=== PATIENT | female | born 1930 | race Caucasian/White ===

== ENCOUNTER → 2016-08-04 | Outpatient (REF) ==
[~2016-08-04] MED LIST: ALDACTONE 25MG25 M1 PO; ALDACTONE50 MG PO; AMARYL 2MG T2 MG/TAB PO; AMARYL4 MG PO; AMIODARONE200 MG PO; ASPIRIN E.C. 8181 MG PO; CARDIZEM CD 12120 MG PO; CARDIZEM CD 18180 MG PO; CARTIA XT180 MG PO; CARTIA XT240 MG PO; COLACE 100100 MG/CAP PO; CORDARONE200 MG/TAB PO; COUMADIN 1MG1 MG/TAB PO; COUMADIN 5MG5 MG/TAB PO; DULCOLAX S10 MG/SUPP RC; FERROUS SU325 MG/TAB PO; GAS RELIEF80 MG PO; HCTZ 25MG TAB25 MG PO; HEPARIN 50500 U/5 ML IV; IPRATROPIUM BROM3 M1 IH; KLONOPIN 0.5MG0.5 MG PO; KLONOPIN WAFE0.25 MG PO; KLONOPIN WAFER0.5 MG PO; KLOR-CON M2020 MEQ PO; LANOXIN 0.25M0.25 MG PO; LASIX 20MG TABL20 MG PO; LASIX40 MG PO; LEVAQUIN 750MG750 M1 PO; MAALOX MAX + ANT1 ML PO; METAMUCIL3.4 GM/DOS PO; MILK OF MA400 MG/52 PO; MIRALAX119G PO; NATURAL E400 IU PO; NORCO 325 MG-101 TAB PO; NOVLOG SQ; NOVOLOG 100U100 U/M1; NS INT FLUSH 1010 ML IV; OSTEO-BI-FLEX 21 TAB PO; PACERONE100 MG PO; PEPCID AC20 MG PO; PERCOCET 325 MG1 TA2 PO; PHARMASSURE MA500 MG PO; POTASSIUM CL 220 MEQ PO; PRILOSEC 20MG20 MG PO; PROTONIX 40MG T40 MG PO; SENNA8.6 MG PO; SENNO8.6 MG PO; SLOW-MAG535 MG PO; TYLENOL 325MG325 MG PO; TYLENOL 500MG500 MG PO; TYLENOL SU650 MG/SUP RC; VITAMIN D 50,1.25 MG PO; VITAMINC1000TA; XOPENEX 0.0.63 MG/3 IH; ZOCOR 80MG80 MG PO; [UNRECOGNIZED DRUG - OTHER]
== END ==
LOC: ZLAB.WCH 15:16
DX: Z01.89 Encounter for other specified special examinations (principal)

== ENCOUNTER → 2016-10-14 | Outpatient (REF) | LOC: ZLAB.WCH 18:10 | DX: Z01.89 Encounter for other specified special examinations (principal) ==

== ENCOUNTER → 2018-03-02 | Outpatient (REF) | LOC: ZLAB.WCH 08:31 | DX: Z01.89 Encounter for other specified special examinations (principal) ==

== ENCOUNTER 2019-08-26 09:49 | Inpatient (IN) | payer MEDICARE ==
[~2019-08-26] VITALS: Ht 160 cm; Wt 80.6 kg
[~2019-08-26 09:49] MED LIST changes: +GAVISCON 80 MG-1 CT1 PO; -[UNRECOGNIZED DRUG - OTHER]
[2019-08-26] MEDS ORDERED: ASPIRIN E.C. 8181 MG PO (12:30)
--- NOTE | 2019-08-26 12:30 | NUR ---
Patient here by EMS. Notified daughter/DPOA of patient status. Notified hospitalist of patient arrival. Patient oriented to room, is alert and oriented to self. Bruising noted over left eye. LUE in sling with splint in place, hand appears swollen with brusing over dorsal aspect of hand. Pulses intact, sensation intact per patient. Assessment and five page complete. Redness noted to groin, bed bath completed. Carter to dependent drainage with clear devin urine in bag. Patient states pain 2/10 to LUE. Denies further needs at this time.
[2019-08-26] MEDS ORDERED: CARTIA XT120 MG PO (12:33)
[2019-08-26] MEDS ORDERED: LIPITOR20 MG PO (12:36)
[2019-08-26] MEDS ORDERED: MAG-OX 400400 MG/TAB PO (12:38)
[2019-08-26] MEDS ORDERED: SYNTHROID0.05 MG/TA PO (12:40)
[2019-08-26 13:03] VITALS: BP 144/48; PULSE 72; TEMP 98.2
[2019-08-26 14:59] LABS: BASO % 0.3 % (0.0-2.0); EOS # 0.1 (0.0-0.7); EOS % 0.8 % (0-4.0); GRAN # 10.8 (1.4-6.5); HEMOGLOBIN 11.9 g/dl (12.5-16.0); LYMPH # 1.8 (1.2-3.4); LYMPH % 12.8 % (20.0-51.0); MEAN CELL VOLUME 100 fl (80.0-100.0); MEAN CORPUSCULAR HEMOGLOBIN 32 pg (27.0-31.0); MEAN CORPUSCULAR HGB CONC 33 g/dl (33.0-37.0); MEAN PLATELET VOLUME 10.8 fl (7.4-10.4); MONO # 1.1 (0.1-0.6); MONO % 7.6 % (1.7-9.3); PLATELET COUNT 296 K/mm3 (130-400); RED BLOOD COUNT 3.67 M/mm3 (4.10-5.30); REDCELL DISTRIBUTION WIDTH-CV 12.9 % (11.5-14.5)
[2019-08-26 15:00] LABS: HEMATOCRIT 36.6 % (37.0-47.0)
[2019-08-26 15:05] LABS: INR 1.3 (0.8-3.0); PROTHROMBIN TIME 15.2 SECONDS (9.7-12.8)
[2019-08-26 15:08] VITALS: BP 153/46; PULSE 74; TEMP 98.2
[2019-08-26 15:19] LABS: ALBUMIN 3.5 gm/dL (3.5-5.0); BILIRUBIN,TOTAL 0.9 mg/dL (0.0-1.0); CREATININE, serum 0.56 (0.52-1.25); TOTAL PROTEIN 6.5 gm/dL (6.4-8.2)
--- NOTE | 2019-08-26 15:31 | NUR ---
LEONARDA contacted the patient's daughter, Rose Marie Clay (ph#[phone]), to discuss discharge plan. The patient lives in [place] with Rose Marie, her son-in-law, and granddaughter. They live in a bi level home. Rose Marie states that the patient lives downstairs. Rose Marie reports that the patient needs some assistance with bathing and has a wheelchair and cane. Rose Marie states that she provides assistance to the patient, when the patient allows it and that the patient primarily uses a wheelchair. She states that the patient will use her cane when she wants to stand up. The patient's PCP is Dr. Jaya Hinkle and she receives her medications at [facility]. Rose Marie reports no difficulties obtaining her meds. The patient does not have advanced directives in EMR, but Rose Marie reports that the patient does not have them completed and at home. She states that she is the patient's DPOA-HC. The H&P reports that the patient has not followed up with her PCP in a year. LEONARDA discussed this with the patient's daughter. The patient's daughter reports that the patient has not been out of their home in a year. She states that the patient does not want to leave the home or go to her appointments. The patient's daughter reports that the plan is for the patient to return back home with them and that she plans to stay downstairs with the patient. LEONARDA discussed home health services. Rose Marie reports that the patient has had home health in the past and that she would be interested in home health again. LEONARDA reviewed Medicare.gov's list of home health agencies that serve [place]. The patient's daughter chose [facility]. LEONARDA contacted and faxed a referral to Gisselle at [facility]. LEONARDA awaiting their screen. Gisselle reports that she would need to get approval from the patient's insurance. LEONARDA to continue to follow.
--- NOTE | 2019-08-26 18:55 | NUR ---
Patient has done well throughout the day. Carter maintained to dependent drainage with clear yellow urine in bag. LUE maintained in sling and elevated. SCDs to BLE. Contacted daughter KARL Trotter for consent for procedure tomorrow. Denies pain throughout the day. Denies further needs at this time. Reported off to shift superintendent caustic cresylate.
--- NOTE | 2019-08-26 19:27 | NUR ---
Pt doing ok. Alert and oriented to self, some confusion at times. Pt here with L radial fx. VSS. Heart and lung sounds normal. Bowel sounds aud all quadrants. Radial pulses present. Carter cath in place to depend drainage, clear yellow urine. Pedal pulses present. PT is incontinent of bowel. On tele, in normal sinus. Left arm in sling, left hand swollen but can wiggle fingers and feel touch. Pt turned to L side. Denies needs. Call light within reach, will continue to monitor
[2019-08-26 20:21] VITALS: BP 138/50; PULSE 78; TEMP 98.3
--- NOTE | 2019-08-26 23:30 | NUR ---
Pt has been put on bed pain 3 times, no bm
[2019-08-26 23:31] VITALS: BP 145/48; PULSE 75; TEMP 97.8
[2019-08-27] VITALS (13 sets, daily range): BP systolic 121–151; BP diastolic 38–74; PULSE 70–78; TEMP 98.1–98.9
--- NOTE | 2019-08-27 06:08 | NUR ---
pt has done okay throughout night. interm took bipap off. had to place back on. turned every 2-3 hours. left hand swelling same as previous shift. ice pack in place. denies needs. call light within reach, will continue to monitor
[2019-08-27 06:45] LABS: BASO % 0.3 % (0.0-2.0); EOS # 0.1 (0.0-0.7); EOS % 0.6 % (0-4.0); GRAN # 9.2 (1.4-6.5); GRAN % 72.5 % (42.2-75.2); HEMOGLOBIN 11.9 g/dl (12.5-16.0); LYMPH # 2.2 (1.2-3.4); LYMPH % 17.5 % (20.0-51.0); MEAN CELL VOLUME 101 fl (80.0-100.0); MEAN CORPUSCULAR HEMOGLOBIN 33 pg (27.0-31.0); MEAN CORPUSCULAR HGB CONC 32 g/dl (33.0-37.0); MEAN PLATELET VOLUME 11.5 fl (7.4-10.4); MONO # 1.1 (0.1-0.6); MONO % 8.7 % (1.7-9.3); PLATELET COUNT 324 K/mm3 (130-400); RED BLOOD COUNT 3.63 M/mm3 (4.10-5.30)
[2019-08-27 06:53] LABS: HEMATOCRIT 36.8 % (37.0-47.0)
[2019-08-27 06:54] LABS: ALBUMIN 3.5 gm/dL (3.5-5.0); BILIRUBIN,TOTAL 0.9 mg/dL (0.0-1.0); CALCIUM 8.9 mg/dL (8.4-10.2); CREATININE, serum 0.59 (0.52-1.25); INR 1.2 (0.8-3.0); POTASSIUM 4.2 mmol/L (3.4-5.0); TOTAL PROTEIN 6.3 gm/dL (6.4-8.2)
--- NOTE | 2019-08-27 07:25 | NUR ---
Patient alert to person only, able to follow commands. LUE with hard splint and sling in place. 2+ edema to LUE. Pulses palpable to LUE, neuros intact. Patient to surgery with surgical staff at 0715.
--- NOTE | 2019-08-27 07:59 | NUR ---
Patient returns from procedure. Assessment unchanged except fiberglass cast now on LUE, sling in place. Neuros intact to LUE, able to feel touch and wiggle fingers. LUE remains with 2+ edema.
--- NOTE | 2019-08-27 10:37 | NUR ---
PT/OT are recommending SNF for the patient. LEONARDA contacted the patient to discuss SNF. The patient stated, "I do not think so." She reports that she does not want to go to SNF. She states that she had to go to a SNF in the past and that it did not go well. She states that she primarily uses a wheelchair and that she would be open to home health. LEONARDA informed her of LEONARDA's conversation with her daughter, Rose Marie, about [facility]. The patient was agreeable to this. LEONARDA then contacted the patient's daughter, Rose Marie, to update and to discuss therapies recommendation. Rose Marie reports that she is agreeable to therapies recommendation, but is aware that the patient will not want to go to a SNF. Rose Marie states that she will talk to her brother and aunt about SNF. She states that they are better able to promote the idea of SNF to the patient. Rose Marie reports that she will contact LEONARDA, once she has spoken to her aunt and brother. SW to continue to follow.
--- NOTE | 2019-08-27 11:54 | NUR ---
First visit from the bed setter. No needs right now.
--- NOTE | 2019-08-27 13:36 | NUR ---
The patient's daughter, Rose Marie, contacted SW back to inform that the patient is now agreeable to SNF. Rose Marie reports that their first preference is 1) [facility] 2) [facility]. SW then contacted the patient to confirm this. The patient reports that she is agreeable now. SW read the Patient Choice Form outloud to the patient. The patient verbalized understanding and gave SW her approval to sign on her behalf. LEONARDA contacted and faxed a referral to both facilities. Shonna, at [facility], reports that they do not have any beds available at this time. Delmy, at [facility], reports that they are not in network with [facility], but will double check. LEONARDA contacted and updated the patient's daughter. The patient's daughter was interested in sending referrals to [facility] and [facility]. LEONARDA contacted and faxed a referral to both of those facilities. SW awaiting their screens.
--- NOTE | 2019-08-27 14:23 | NUR ---
Eve, at [facility], reports that they are able to accept the patient for a skilled stay. LEONARDA updated the patient's daughter, Rose Marie. Rose Marie is agreeable with the patient going to [facility]. LEONARDA to update the patient and will continue to follow.
--- NOTE | 2019-08-27 20:05 | NUR ---
PT TAKES HS MEDS WITHOUT PROBLEM. IS ALERT AND ORIENTED X3. HAS SWOLLEN LEFT HAND, ELEVATED ON PILLOW, SLING ON AND CAST IS DRY. HAS HORNE TO BSD WITH YELLOW URINE. WEARING CPAP WITH OXYGEN BLED IN. RESTARTED NEW IV SITE TO RIGHT WRIST. OLD IV SITE TO RIGHT HAND PULLED OUT ACCIDENTALLY BY PT. CALL LIGHT WITHIN REACH.
--- NOTE | 2019-08-27 23:57 | NUR ---
MEDICATED WITH NORCO 10 AT THIS TIME FOR LEFT ARM PAIN 12/05.
[2019-08-28] VITALS (7 sets, daily range): BP systolic 120–150; BP diastolic 39–60; PULSE 66–73; TEMP 97.5–99.3
--- NOTE | 2019-08-28 04:00 | NUR ---
Pt attempts to use the bedpan for BM without success. Repositioned in bed. left arm elevated on pillow, fingers remain swollen and bruised.
--- NOTE | 2019-08-28 06:00 | NUR ---
Placed on bedpan for attempt to have BM.
--- NOTE | 2019-08-28 07:00 | NUR ---
Unsuccessful with BM. Breakfast at bedside.
[2019-08-28 07:13] LABS: BASO # 0.1 (0.0-0.2); BASO % 0.4 % (0.0-2.0); EOS # 0.1 (0.0-0.7); EOS % 0.6 % (0-4.0); GRAN # 8.2 (1.4-6.5); GRAN % 71.9 % (42.2-75.2); HEMOGLOBIN 11.9 g/dl (12.5-16.0); LYMPH # 1.9 (1.2-3.4); LYMPH % 16.5 % (20.0-51.0); MEAN CELL VOLUME 101 fl (80.0-100.0); MEAN CORPUSCULAR HEMOGLOBIN 33 pg (27.0-31.0); MEAN CORPUSCULAR HGB CONC 32 g/dl (33.0-37.0); MEAN PLATELET VOLUME 11.8 fl (7.4-10.4); MONO # 1.2 (0.1-0.6); MONO % 10.2 % (1.7-9.3); PLATELET COUNT 286 K/mm3 (130-400); RED BLOOD COUNT 3.63 M/mm3 (4.10-5.30); REDCELL DISTRIBUTION WIDTH-CV 12.7 % (11.5-14.5)
[2019-08-28 07:17] LABS: HEMATOCRIT 36.7 % (37.0-47.0)
[2019-08-28 07:34] LABS: ALBUMIN 3.4 gm/dL (3.5-5.0); BILIRUBIN,TOTAL 0.8 mg/dL (0.0-1.0); CREATININE, serum 0.52 (0.52-1.25); POTASSIUM 4.5 mmol/L (3.4-5.0); TOTAL PROTEIN 6.3 gm/dL (6.4-8.2)
--- NOTE | 2019-08-28 08:02 | NUR ---
PT in room trying to encourage patient to sit on edge of bed. Patient resistant and does not want to sit on edge of bed. Patient requests to use bedpan. Ask patient if she would like to use commode at bedside and the patient says that she does not want to get out of bed. Patient placed on bedpan. Assessment completed. Rates pain 6/10 to left arm, describes as achy. 2+ edema noted to left hand. Cast in place. CMS intact. Bruise and small knot noted to left mormonism on forehead, patient says that it happened from her fall at home. Carter patent draining clear yellow urine. Patient denies needs at this time.
[2019-08-28 08:47] LABS: INR 1.2 (0.8-3.0); PROTHROMBIN TIME 13.9 SECONDS (9.7-12.8)
--- NOTE | 2019-08-28 11:49 | NUR ---
Rating pain 7/10 in left arm, describes as achy, worsens with movement. Naoma administered as prescribed. Patient denies further needs.
--- NOTE | 2019-08-28 16:00 | NUR ---
LEONARDA contacted the patient's room phone to inform of her [facility]'s acceptance. The patient was in agreeance to going to [facility] upon discharge. LEONARDA contacted and faxed updates to Eve at [facility]. LEONARDA to continue to follow.
--- NOTE | 2019-08-28 17:50 | NUR ---
PATIENT HORNE CATHETER DISCONTINUED PER ORDERS. 8 MLS OF STERILE WATER ASPIRATED FROM BALLOON. TIP INTACT. PATIENT TOLERATED WELL.
--- NOTE | 2019-08-28 20:00 | NUR ---
Report received. Assumed care for night nurse. Assessment complete. VS stable. Denies pain/nausea/shortness of breath. Hematoma to left periorbital area with ecchymosis to mormon +flatus but states she hasnt had a BM and feels as if she needs to. Currently on bedpan. Due to void post dietz removal. Left arm in cast/sling-good CMS-swelling/ecchymosis noted to hand/fingers. SCDs bilat. Bilat lower extremity elevated on pillows/heels floated. Fresh ice pack applied. Call light in reach/bed in low/wheels locked. WIll continue to monitor output.
--- NOTE | 2019-08-29 00:30 | NUR ---
Resting in bed eyes open-requesting bed pascual to try to have BM. IS due to void post dietz removal. Bladder scan done with 160mls. Denies need to void. Placed on bed pascual at this time. DIscussed option of Dulcolax suppos. States she would like to try to go before getting one. Will monitor.
--- NOTE | 2019-08-29 02:40 | NUR ---
Requesting bed pascual to attempt to have BM. Placed on bed pascual. PAULIE Schulz notified of need for suppository. New orders received and initiated. Still states she doesnt need to void. Will bladder scan after BM attempt.
--- NOTE | 2019-08-29 03:00 | NUR ---
Bladder scan complete showing 250mls. Suppository placed. WIll monitor.
--- NOTE | 2019-08-29 03:30 | NUR ---
Requesting bed pascual to try to have a BM. Encouraged to get up to bedside commode but refusing. States she feels as if she will be able to go now. Placed on bed pascual. Will monitor.
--- NOTE | 2019-08-29 03:45 | NUR ---
Off bed pascual. Did void 150mls yellow cloudy urine. Scant smear of brown BM. +flatus. Will monitor.
[2019-08-29 04:03] VITALS: BP 148/45; PULSE 84; TEMP 98.5
--- NOTE | 2019-08-29 05:05 | NUR ---
Back on bed pascual. Refuses bedside commode.
[2019-08-29 05:06] LABS: FOLATE (FOLIC ACID) 13.6 ng/mL (>=4.0)
--- NOTE | 2019-08-29 05:45 | NUR ---
Back to bed pascual.
[2019-08-29 07:27] VITALS: BP 143/45; PULSE 83; TEMP 98.2
--- NOTE | 2019-08-29 07:35 | NUR ---
Lying in bed with eyes open. Denies pain in left arm. Explains that she rates pain in abd and rectum 6/10 as she is constipated and needs to have a bowel movement. Is on bedpan at this time. Explain to the patient that her bottom is starting to get red so we cannot leave her on the bedpan for a long time. Left arm with cast intact and sling in place. Swelling to left hand 1+. Patient denies needs or concerns at this time.
[2019-08-29 08:30] LABS: BASO # 0.1 (0.0-0.2); BASO % 0.4 % (0.0-2.0); EOS % 0.2 % (0-4.0); GRAN # 14.6 (1.4-6.5); GRAN % 85.2 % (42.2-75.2); HEMATOCRIT 37.4 % (37.0-47.0); HEMOGLOBIN 12.2 g/dl (12.5-16.0); LYMPH # 1.1 (1.2-3.4); LYMPH % 6.5 % (20.0-51.0); MEAN CELL VOLUME 99 fl (80.0-100.0); MEAN CORPUSCULAR HEMOGLOBIN 32 pg (27.0-31.0); MEAN CORPUSCULAR HGB CONC 33 g/dl (33.0-37.0); MEAN PLATELET VOLUME 10.7 fl (7.4-10.4); MONO # 1.2 (0.1-0.6); MONO % 7.1 % (1.7-9.3); RED BLOOD COUNT 3.77 M/mm3 (4.10-5.30); REDCELL DISTRIBUTION WIDTH-CV 12.7 % (11.5-14.5)
[2019-08-29 08:33] LABS: PLATELET COUNT 401 K/mm3 (130-400)
[2019-08-29 08:34] LABS: INR 1.1 (0.8-3.0); PROTHROMBIN TIME 13.1 SECONDS (9.7-12.8)
--- NOTE | 2019-08-29 08:45 | NUR ---
Lab calls regarding platelet count. JEREMY Whitt, informed of platelet count. They will review further and advise when making rounds.
[2019-08-29 08:47] LABS: ALBUMIN 3.5 gm/dL (3.5-5.0); BILIRUBIN,TOTAL 0.9 mg/dL (0.0-1.0); CALCIUM 9.1 mg/dL (8.4-10.2); CREATININE, serum 0.66 (0.52-1.25); POTASSIUM 4.5 mmol/L (3.4-5.0); TOTAL PROTEIN 6.5 gm/dL (6.4-8.2)
[2019-08-29 11:23] VITALS: BP 154/49; PULSE 86; TEMP 99
--- NOTE | 2019-08-29 11:27 | NUR ---
The patient is to tentatively discharge tomorrow, 08/29. SW contacted and updated the patient's daughter, Rose Marie. Rose Marie is agreeable with the patient going to [facility]. SW contacted and reviewed the discharge plan with the patient. The patient is agreeable with going to [facility]. SW read the IM form outloud to the patient. The patient verbalized understanding and gave SW approval to sign on her behalf on 08/29/2019 at 1123. LEONARDA to notify and fax updates to Eve at [facility]. SW to continue to follow.
--- NOTE | 2019-08-29 13:20 | NUR ---
Warfarin Follow-up Pharmacy Note Current regimen: WARFARIN 3 MG QHS LABS: INR 1.1 Changes in therapy: INCREASE TO WARFARIN 5 MG QHS
[2019-08-29 15:32] VITALS: BP 153/53; PULSE 89; TEMP 99.7
--- NOTE | 2019-08-29 17:56 | NUR ---
Sitting up in bed eating supper. Denies pain. Says that her stomach pain that she had this morning is getting better with each bowel movement she has. Patient denies needs at this time.
[2019-08-29 19:37] VITALS: BP 148/51; PULSE 88; TEMP 98.5
[2019-08-29 23:00] VITALS: BP 136/52; PULSE 68; TEMP 98.6
[2019-08-30 02:32] VITALS: BP 139/57; PULSE 75; TEMP 99.3
[2019-08-30 06:38] LABS: HEMOGLOBIN 12.1 g/dl (12.5-16.0); MEAN CELL VOLUME 98 fl (80.0-100.0); MEAN CORPUSCULAR HEMOGLOBIN 33 pg (27.0-31.0); MEAN CORPUSCULAR HGB CONC 33 g/dl (33.0-37.0); MEAN PLATELET VOLUME 11.2 fl (7.4-10.4); PLATELET COUNT 394 K/mm3 (130-400); REDCELL DISTRIBUTION WIDTH-CV 12.8 % (11.5-14.5)
[2019-08-30 06:43] LABS: HEMATOCRIT 36.3 % (37.0-47.0)
[2019-08-30 06:52] LABS: INR 1.2 (0.8-3.0); PROTHROMBIN TIME 14.3 SECONDS (9.7-12.8)
[2019-08-30 06:55] LABS: CALCIUM 9.1 mg/dL (8.4-10.2); CREATININE, serum 0.61 (0.52-1.25); POTASSIUM 4.3 mmol/L (3.4-5.0)
[2019-08-30 07:51] LABS: BAND 2 % (0-10); LYMPHOCYTE 9 % (20.0-51.0); NEUTROPHILS 80 % (42.0-75.2); PLATELET ESTIMATE NORMAL (NORMAL)
[2019-08-30 08:07] VITALS: BP 143/41; PULSE 74; TEMP 98.1
--- NOTE | 2019-08-30 08:30 | NUR ---
Patient in bed resting. Alert and oriented to self and place. Refused to work with PT this AM. Assessment complete. SCDs to BLE, scaling/flaking noted to BLE. Patient incontinent of stool, pericare provided. Redness noted to pannus and groin. RUE in cast and sling. Denies further needs at this time.
--- NOTE | 2019-08-30 10:43 | NUR ---
The patient's WBC went up. The patient is not yet ready to discharge. Possible discharge this weekend. LEONARDA contacted and updated the patient's daughter, Rose Marie. LEONARDA contacted and faxed andres Prado at [facility]. SW to continue to follow.
[2019-08-30 12:22] VITALS: BP 146/59; PULSE 78; TEMP 97.8
--- NOTE | 2019-08-30 14:20 | NUR ---
Notified hospitalist, patent having soft formed stools, unable to send sample for cdiff.
[2019-08-30 14:58] LABS: COLLECTION METHOD CLEAN CATCH
[2019-08-30 15:11] LABS: AMORPHOUS CRYSTAL Present /uL; BUDDING YEAST Present /hpf; MUCOUS Present /lpf; PH 5 (5-8); URINE APPEARANCE Hazy; URINE BACTERIA Occasional /hpf; URINE BILIRUBIN Negative (NEGATIVE); URINE BLOOD 2+ (NEGATIVE); URINE COLOR Yellow; URINE GLUCOSE Negative (NEGATIVE); URINE KETONE Negative (NEGATIVE); URINE LEUKOCYTE ESTERASE 1+ (NEGATIVE); URINE NITRATE Negative (NEGATIVE); URINE PROTEIN(semi-quant) Negative (NEGATIVE); URINE UROBILINOGEN Negative (NEGATIVE)
[2019-08-30 16:00] VITALS: BP 136/47; PULSE 69; TEMP 98.3
--- NOTE | 2019-08-30 18:15 | NUR ---
Patient has done well througout the day. Refued meals today, states she does not have much of an appetite. Incontinent care provided throughout the day. Purwick in place. Repositioned throughout the day. SCDs maintained to BLE. Denies further needs at this time. Will report off to night warehouse selector.
[2019-08-30 19:11] VITALS: BP 144/46; PULSE 70; TEMP 99.1
--- NOTE | 2019-08-30 21:00 | NUR ---
RECEIVED BEDSIDE SHIFT REPORT FROM CHINYERE JIMENEZ. PT RESTING IN BED. DOZING. NO RESP DISTRESS. PT HAS FLAT AFFECT. PT C/O LT ARM PAIN. ELEVATED ON PILLOWS. SEE MAR FOR PAIN MEDS GIVEN. PT INCONTINENT OF GRREN LOOSE STOOL. NOTED STAGE 2 COCCYX FLUID FILLED BLISTER. CLEANED AREA AND APPLIED MEPILEX. PERIWICK REMOVED. DIAPER APPILED. CALL LIGHT IN REACH. BED ALARM SET. DAUGHTER CALLED FOR UPDATE.
[2019-08-30 23:40] VITALS: BP 148/47; PULSE 58; TEMP 97.7
[2019-08-31 04:12] VITALS: BP 139/42; PULSE 63; TEMP 98.3
--- NOTE | 2019-08-31 05:54 | NUR ---
NOTIFIED DR AGEE OF EKG CHANGES. NO NEW ORDERS AT THIS TIME.
[2019-08-31 06:55] LABS: BASO # 0.1 (0.0-0.2); BASO % 0.4 % (0.0-2.0); EOS # 0.1 (0.0-0.7); EOS % 0.7 % (0-4.0); GRAN % 80.1 % (42.2-75.2); HEMOGLOBIN 11.2 g/dl (12.5-16.0); LYMPH # 1.3 (1.2-3.4); LYMPH % 8.9 % (20.0-51.0); MEAN CELL VOLUME 98 fl (80.0-100.0); MEAN CORPUSCULAR HEMOGLOBIN 32 pg (27.0-31.0); MEAN CORPUSCULAR HGB CONC 32 g/dl (33.0-37.0); MEAN PLATELET VOLUME 11.4 fl (7.4-10.4); MONO # 1.4 (0.1-0.6); PLATELET COUNT 368 K/mm3 (130-400); RED BLOOD COUNT 3.54 M/mm3 (4.10-5.30); REDCELL DISTRIBUTION WIDTH-CV 12.5 % (11.5-14.5)
[2019-08-31 06:57] LABS: INR 1.5 (0.8-3.0)
[2019-08-31 07:06] LABS: CALCIUM 8.8 mg/dL (8.4-10.2); CREATININE, serum 0.6 (0.52-1.25)
[2019-08-31 07:09] LABS: HEMATOCRIT 34.7 % (37.0-47.0)
[2019-08-31 07:50] VITALS: BP 132/37; PULSE 63; TEMP 98.6
--- NOTE | 2019-08-31 08:00 | NUR ---
PT IS A&O*3. VSS. PT COMPLAINS GENERALIZED DISCOMFORT BUT REPORT IT IS TOLERABLE. PATIENT RECEIVED PAIN PILL FROM PEBBLE MILL OPERATOR. PT ADMIT WITH LEFT RADIAL FRACTURE ON 08/25. PT HAD LEFT RADIAL CLOSED REDUCTION ON 08/26. LUE DRESSING IS CD&I WITH CAST & SPLINT INPLACE. PT HAS ECCHYMOSIS ON LEFT FOREHEAD, LEFT HIP FROM FALL. PT HAS WHEEZING ON BILATERAL UPPER LUNG WITH CLEAR LUNG BASES. NO C/O SOA. PT HAS STAGE 1 PRESSURE ULCER ON SACRAL AREA, APPLIED PRESSURE DRESSING. PATIENT HAS YEAST IN ABD PANUS, APPLIED POWDER. PATIENT GIVEN BED BATH BY HUSBANDRY PERSON. PT HAS POOR APPETITE BUT NO C/O N/V. PT HAVE NO MOTIVATION TO DO ACTIVITY. PT/OT CONSULTED TO INCREASE ACTIVITY. PT HAS IV ON RIGHT WRIST TO INT. CALL LIGHT WITHIN REACH.
[2019-08-31 11:42] VITALS: BP 133/49; PULSE 59; TEMP 97.9
--- NOTE | 2019-08-31 15:10 | NUR ---
LEONARDA received a call from Pt nurse about possible discharge. LEONARDA faxed updates and contacted Griselda with [facility] to inquire about discharge today. Griselda indicated concerns about pt's soft stools and inquired about testing for CEDF. griselda indicated that [facility] would not accept pt unless there was a negative test or pt had solid stools for 24 hours. LEONARDA contacted pt's provider and discussed situation. Provider provided updating information that LEONARDA faxed to Griselda, however he indicated that they would be able to accept Pt tomorrow if she has solid stools for 24 hours.
[2019-08-31 15:17] VITALS: BP 133/41; PULSE 60; TEMP 98
--- NOTE | 2019-08-31 21:00 | NUR ---
Pt. laying in bed at this time. Pt. is A&Ox2, assessment complete. Int to rt. wrist patent. Sling and cast to lt. arm. Pt. repored pain at a 5 on pain scale, will give pain meds per orders. Pt. checked for incontinence, brief with smear of stool, pericare provided. Desenex powder applied to groin and panus. PT. repositioned for comfort. Pt. denies further needs, call light within reach.
[2019-08-31 21:15] VITALS: BP 136/41; PULSE 69; TEMP 98.6
[2019-09-01 05:09] VITALS: BP 142/44; PULSE 60; TEMP 97.7
[2019-09-01 06:45] VITALS: BP 140/48; PULSE 60; TEMP 97.8
[2019-09-01 06:50] LABS: INR 1.8 (0.8-3.0); PROTHROMBIN TIME 21.3 SECONDS (9.7-12.8)
[2019-09-01 10:59] VITALS: BP 143/43; PULSE 64; TEMP 97.8
--- NOTE | 2019-09-01 11:51 | NUR ---
Patient resting in bed. Refuses lunch at this time. Just completed working with therapy. Patient was very resistant. Not motivated, only stood shortly. Refused chair or bedside commode. Patient was assisted with fresh linens & bed bath. Refused oral care. Lotion to skin. Left arm splint & sling intact. cms intact. Brusing noted to Left hip & left side of tempal. Scds ble. Coccyx with reddned & stage 1, allyven foam applied. Patient had sat on bedpan, did not void or have stool. this am patient was provided with incontinent care & new brief. desynex powder to pannus & under right breast. Patient repositioned. She did eat breakfast of oatmeal & juice & bannana, lunch blood sugar elevated & insulin per orders. Will monitor.
[2019-09-01] MEDS ORDERED: Desenex/Lotrimin AF TP (14:35)
[2019-09-01] MEDS ORDERED: OMNICEF 300MG300 MG PO (14:37)
[2019-09-01] MEDS ORDERED: DIFLUCAN200 MG PO (14:37)
--- NOTE | 2019-09-01 15:20 | NUR ---
LEONARDA called GINNY Trotter , informed her of the transfer to [facility] at 03:45. nothing follows.
[2019-09-01 15:22] VITALS: BP 132/34; PULSE 62; TEMP 97.5
[2019-09-01 15:44] VITALS: BP 132/34; PULSE 62; TEMP 97.5
[2019-09-01] MEDS ORDERED: NORCO 325 MG-51 TAB PO (15:56)
--- NOTE | 2019-09-01 16:24 | NUR ---
Patient to [facility]. Patient transferred to wheelchair, she was not excited about leaving the hospital. Patient was able to stand and hold her weight & pivot. Packed all belongings. [facility]. Iv Dc. Patient did have a milkshake this afternoon & blood sugar down to 180. Patient voided & used bedpan. Pericare provided.
== END 2019-09-01 16:27 | DRG 563 ==
LOC: SURG 09:49 → EDSTATUS 12:11 → SURG 12:27
PROVIDERS: Nurse Practitioner Family; Orthopaedic Surgery; Physician Assistant; Student in an Organized Health Care Education/Training Program; ADMIT Student in an Organized Health Care Education/Training Program
PROC: 2W39X2Z Immobilization of Left Upper Extremity using Cast (ICD-10-PCS; 2019-08-27)
PROC: 0PSJXZZ Reposition Left Radius, External Approach (ICD-10-PCS; principal; 2019-08-27 07:30)
DX: S52.502A Unspecified fracture of the lower end of left radius, initial encounter for closed fracture (principal); N39.0 Urinary tract infection, site not specified; R79.89 Other specified abnormal findings of blood chemistry; I48.91 Unspecified atrial fibrillation; D64.9 Anemia, unspecified; R09.02 Hypoxemia; E11.9 Type 2 diabetes mellitus without complications; E78.5 Hyperlipidemia, unspecified; G47.33 Obstructive sleep apnea (adult) (pediatric); K21.9 Gastro-esophageal reflux disease without esophagitis; E03.9 Hypothyroidism, unspecified; W18.30XA Fall on same level, unspecified, initial encounter; S05.12XA Contusion of eyeball and orbital tissues, left eye, initial encounter; S93.401A Sprain of unspecified ligament of right ankle, initial encounter; B96.89 Other specified bacterial agents as the cause of diseases classified elsewhere; I50.9 Heart failure, unspecified; D72.829 Elevated white blood cell count, unspecified; Z85.038 Personal history of other malignant neoplasm of large intestine; Z90.49 Acquired absence of other specified parts of digestive tract; Z91.19 Patient's noncompliance with other medical treatment and regimen; Z79.01 Long term (current) use of anticoagulants
CPT/HCPCS: 99222-AI; 99231-AI; 99232-AI; 99233-AI; 99239; A4216; G0378; J0696; J1650; J1815; J2704; J7030